=== PATIENT | male | born 1950 | race Caucasian/White ===

== ENCOUNTER 2017-05-26 15:14 | Emergency (ER) | payer MEDICARE, OTHER ==
[2017-05-26] MEDS ORDERED: IBUPROFEN 600 MG TABLET (FP) PO ONE ×2 (15:53→16:13)
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
[2017-05-26 15:55] VITALS: BP 127/78; PULSE 86; TEMP 98.6; BMI 25.8
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
== END 2017-05-26 16:28 | disposition home or self-care (01) ==
LOC: JERFT 15:14
DX: M54.6 Pain in thoracic spine (principal); V47.5XXA Car driver injured in collision with fixed or stationary object in traffic accident, initial encounter; Y92.488 Other paved roadways as the place of occurrence of the external cause; Y93.89 Activity, other specified; Y99.8 Other external cause status
CPT/HCPCS: 99281-25